=== PATIENT | male | born 1965 | race Caucasian/White ===

== ENCOUNTER 2017-05-02 22:06 | Emergency (ER) | payer OTHER ==
[~2017-05-02] VITALS: Ht 175.3 cm; Wt 93.2 kg
[~2017-05-02 22:06] MED LIST: ABILIFY10 MG PO; AMOXICILLIN875 MG PO; ATARAX,VISTARIL50 MG PO; Atarax,Vistaril PO; DEPAKOTE500 MG PO; Depakote PO; KLONOPIN0.25 MG PO; LEXAPRO20 MG PO; Levaquin PO; PREDNISONE50 MG PO; ROBITUSSIN AC,T10 ML PO; SEROQUEL50 MG PO; SERTRALINE HCL100 MG PO; WELLBUTRIN XL150 MG PO; ZITHROMAX Z-PA250 MG PO; ZOLOFT50 MG PO; Zoloft PO; predniSONE PO
[2017-05-02 23:42] LABS: HEMATOCRIT 37.5 % (38.0-50.0); MCH 34.6 PG (29.0-34.0); MCHC 34.7 G/DL (30.0-36.0); MCV 99.7 FL (86-99); MEAN PLAT.VOLUME 9.9 uM^3 (9.0-12.4); PLATELET COUNT 174 K/uL (156-360); RBC DIS.WIDTH-SD 44.5 % (39-53); RED BLOOD COUNT 3.76 M/uL (4.00-5.50); WHITE BLOOD COUNT 9.5 K/uL (4.1-10.2)
[2017-05-03 00:06] LABS: CHLORIDE 102 mEq/L (99-109); POTASSIUM 3.8 mEq/L (3.7-5.4); SODIUM 135 mEq/L (136-147)
[2017-05-03 00:07] LABS: GLUCOSE 84 mg/dL (70-99)
[2017-05-03 00:09] LABS: ANION GAP 15 MEQ/L (2-14)
[2017-05-03 00:11] LABS: GFR ESTIMATE (CALCULATED) > 59 mL/min/
[2017-05-03 00:12] LABS: UREA NITROGEN (BUN) 7 mg/dL (9-23)
[2017-05-03 00:16] LABS: SERUM ETHYL ALCOHOL 122 mg/dL
[2017-05-03 00:30] LABS: TROP-I INTERPRETATION NEGATIVE; TROPONIN-I < 0.01 ng/mL (0.0-0.30)
[2017-05-03] MEDS ORDERED: HYCODAN SYRUP480 ML PO (02:01)
[2017-05-03] MEDS ORDERED: PREDNISONE50 MG PO (02:01)
[2017-05-03] MEDS ORDERED: VENTOLIN HFA18 GM IH (02:01)
[2017-05-03] MEDS ORDERED: AUGMENTIN875 MG PO (02:01)
[2017-05-03 02:19] VITALS: BP 120/81
== END 2017-05-03 02:39 | disposition home or self-care (01) ==
LOC: EME 22:06
DX: J44.0 Chronic obstructive pulmonary disease with (acute) lower respiratory infection (principal); J20.9 Acute bronchitis, unspecified; F17.200 Nicotine dependence, unspecified, uncomplicated
CPT/HCPCS: 71020; 80048; 84484; 85027; 93005; 94640; 99281; 99285; G0480; J2930